=== PATIENT | male | born 1960 | race Caucasian/White ===

== ENCOUNTER 2016-11-11 13:26 | Emergency (ER) | payer OTHER ==
[2016-11-11] MEDS ORDERED: ZOFRAN IV ONE ×2 (14:01→15:56)
[2016-11-11] MEDS ORDERED: NS 1,000 ML IV ONE (14:01)
--- NOTE | 2016-11-11 14:05 | PROVIDER DOCUMENTATION ---
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 Patient had a patch placed by due to having some CSF fluid leakage and part of membrane was removed. He was d/c home after recovery. This morning he developed N/V, headache, and clear drainage to the back throat. Family has been touching base with office and it was recommended to go to the ER for CT scan to see of patch to membrane is working. Location of Pain/Injury: reports: head Pain Radiation: reports: no radiation Quality of Pain: reports: aching Severity: reports: moderate Onset/Duration: reports: gradual, this morning Timing: reports: still present, constant Context/Activities at Onset: reports: other (post op x 1 day) Modifying Factors: improves with: nothing Associated Symptoms: reports: EENT symptoms, fatigue, headaches, nausea, vomiting, weakness. denies: back/neck pain, chest pain, fever/chills, genitourinary problems, loss of appetite, muscle aches Similar Symptoms Previously?: Yes Recently seen or treated by another doctor?: Yes <Marquise Matta - Last Filed: 11/11/16 16:00> <Benito Benz - Last Filed: 11/11/16 16:47> - General Chief Complaint: Post Op Complaint Stated Complaint: POST OP COMPLAINT Time Seen by Provider: 11/11/16 13:49 Allergies/Adverse Reactions: Patient Allergies Allergy/AdvReac Type Severity Reaction Status Date / Time codeine [Codeine] Allergy Severe HIVES Verified 11/11/16 13:53 naproxen sodium * Allergy Mild RASH Verified 11/11/16 13:53 [From Aleve] oxycodone Allergy RASH Verified 11/11/16 13:53 Home Medications: Home Medication List Medication Instructions Recorded Confirmed Last Taken Type Losartan [Cozaar] 100 mg PO DAILY 05/23/12 11/11/16 04/07/16 04:30 History Metformin HCl [Glucophage Xr] 500 mg PO BID 05/23/12 11/11/16 04/06/16 17:00 History PRAVAstatin [Pravachol] 20 mg PO DAILY 05/23/12 11/11/16 04/06/16 21:00 History Aclidinium [place] [Tudorza 400 mcg IH DAILY 10/17/13 11/11/16 04/07/16 04:00 History Pressair] Clonazepam [Klonopin] 0.5 - 1 mg PO HS 10/17/13 11/11/16 04/06/16 21:00 History Aspirin 81 mg PO DAILY 03/08/15 11/11/16 03/24/16 17:00 History Metoprolol Succinate E.r. [Toprol 25 mg PO DAILY 03/08/15 11/11/16 04/07/16 04: 30 History Xl] Cholecalciferol (Vitamin D3) 50,000 unit PO DIRECTED 03/31/16 11/11/16 07:00 History [Vitamin D3] Hydrocodone/Acetaminophen [Center 1 each PO 4XDAY 03/31/16 11/11/16 04/07/16 03: 00 History 10-325 Tablet] Colesevelam HCl [Welchol] 625 mg PO BID 11/11/16 11/11/16 Unknown History Fluticasone 50 Mcg Nasal [place] 1 spray BEVERLY BID 11/11/16 11/11/16 Unknown History [Flonase] Umeclidinium/Vilanterol [Anoro 1 puff INH DAILY 11/11/16 11/11/16 Unknown History Ellipta 62.5-25 Mcg INH] Review of Systems - Adult - REVIEW OF SYSTEMS - ADULT Constitutional: denies: chills, fever Eyes: denies: double vision Ears, Nose, Mouth & Throat: reports: sinus problem. denies: ear discharge, ear pain, throat pain, throat swelling Cardiovascular: denies: chest pain, palpitations, syncope Respiratory: denies: cough, shortness of breath, wheezing Gastrointestinal: reports: nausea, vomiting. denies: abdominal pain, diarrhea Genitourinary: denies: dysuria, discharge, hematuria, urgency Musculoskeletal: reports: no symptoms reported Integumentary: reports: no symptoms reported Neurological: reports: headache/migraines. denies: dizziness/vertigo, seizure, syncope Psychiatric: reports: no symptoms reported Endocrine: reports: no symptoms reported Hematologic/Lymphatic: reports: no symptoms reported Allergic/Immunologic: reports: no symptoms reported All Other Systems: Reviewed and Negative <Marquise Matta - Last Filed: 11/11/16 16:00> Past History - Adult - PAST MEDICAL HISTORY-ADULT Review of Records: reports: Nursing Assessment Review, Medications Reviewed Cardiovascular: reports: HTN Respiratory: reports: COPD, sleep apnea Genitourinary: reports: kidney stones Musculoskeletal: reports: intervertebral disc disease, 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) Endocrine/Immune: reports: Diabetes - PRIOR SURGERIES/PROCEDURES Surgical/Procedure History: reports: recent surgery (deviated septum and two calcified tumors removed), appendectomy, orthopedic (extremity) (right hand), back/neck - SOCIAL HISTORY Smoking: quit greater than 1 year, cigarettes Living Situation: family <Marquise Matta - Last Filed: 11/11/16 16:00> Physical Exam-General - PHYSICAL EXAM-ADULT Initial Vital Signs Reviewed: Yes - CONSTITUTIONAL General Appearance: alert, mild distress, moderate distress, lethargic - EYES Eyes: PERRL/EOMI, pink conjunctivae - HEAD, EARS, NOSE, MOUTH & THROAT HENMT: normocephalic/atraumatic, moist mucous membranes, pharynx normal, other ( dried blood in nostrils,tenderness to left nare) - NECK Neck: non-tender, full range of motion, normal inspection - RESPIRATORY Respiratory: lungs clear, normal breath sounds, no respiratory distress, no accessory muscle use - CARDIOVASCULAR Cardiovascular: regular rate, rhythm, no gallop, no murmur - GASTROINTESTINAL (ABDOMEN) Abdominal Exam: normal bowel sounds, non tender, soft - MUSCULOSKELETAL Extremity: normal range of motion, normal inspection - SKIN Integumentary: normal color, warm/dry - NEUROLOGIC Neurologic: grossly normal, no motor/sensory deficits - PSYCHIATRIC Psych/Mental Status: oriented x 3. negative: anxious, tearful <Marquise Matta - Last Filed: 11/11/16 16:00> Progress - PLAN OF CARE/RESULTS Progress/Plan/Lab Results: plan of care-labs, ct head, fluids Vital Signs Temp Pulse Resp BP Pulse Ox 11/11/16 14:01 81 24 174/103 97 11/11/16 13:29 99.6 F 74 16 190/92 90 L codeine [Codeine] Allergy (Severe, Verified 11/11/16 13:53) HIVES naproxen sodium * [From Aleve] Allergy (Mild, Verified 11/11/16 13:53) RASH oxycodone Allergy (Verified 11/11/16 13:53) RASH Losartan [Cozaar] 100 mg PO DAILY 05/23/12 Metformin HCl [Glucophage Xr] 500 mg PO BID 05/23/12 PRAVAstatin [Pravachol] 20 mg PO DAILY 05/23/12 Aclidinium [place] [Tudorza Pressair] 400 mcg IH DAILY 10/17/13 Clonazepam [Klonopin] 0.5 - 1 mg PO HS 10/17/13 Aspirin 81 mg PO DAILY 03/08/15 Metoprolol Succinate E.r. [Toprol Xl] 25 mg PO DAILY 03/08/15 Cholecalciferol (Vitamin D3) [Vitamin D3] 50,000 unit PO DIRECTED 03/31/16 Hydrocodone/Acetaminophen [Center 10-325 Tablet] 1 each PO 4XDAY 03/31/16 Colesevelam HCl [Welchol] 625 mg PO BID 11/11/16 Fluticasone 50 Mcg Nasal [place] [Flonase] 1 spray BEVER[place] BID 11/11/16 Umeclidinium/Vilanterol [Anoro Ellipta 62.5-25 Mcg INH] 1 puff INH DAILY Laboratory 11/11/16 11/11/16 11/11/16 13:40 13:40 13:40 WBC RBC Hgb Hct MCV MCH MCHC RDW Std Deviation Plt Count MPV Immature Gran % (Auto) Neut % (Auto) Lymph % (Auto) [place] % (Auto) Eos % (Auto) Baso % (Auto) Immature Gran # (Auto) Neut # (Auto) Lymph # (Auto) [place] # (Auto) Eos # (Auto) Baso # (Auto) PT 10.7 INR 1.01 PTT (Actin FS) 28.7 Sodium 136 Potassium 4.4 Chloride 94 L Carbon Dioxide 29 Anion Gap 13 BUN 9 Creatinine 1.0 Estimated GFR/1.73 m2 > 60 BUN/Creatinine Ratio 9 Glucose 152 H Calculated Osmolality 274 Calcium 9.8 Total Bilirubin 0.63 AST 30 ALT 17 Alkaline Phosphatase 89 Total Protein 7.6 Albumin 4.4 Globulin 3.2 Albumin/Globulin Ratio 1.4 Plasma Lactate 1.6 11/11/16 13:40 WBC 15.56 H RBC 5.54 Hgb 15.8 Hct 48.4 MCV 87.4 MCH 28.5 MCHC 32.6 L RDW Std Deviation 13.8 Plt Count 277 MPV 11.5 H Immature Gran % (Auto) 0.3 Neut % (Auto) 85.3 H Lymph % (Auto) 7.8 L [place] % (Auto) 6.4 Eos % (Auto) 0.1 Baso % (Auto) 0.1 Immature Gran # (Auto) 0.04 Neut # (Auto) 13.28 H Lymph # (Auto) 1.21 [place] # (Auto) 0.99 H Eos # (Auto) 0.02 Baso # (Auto) 0.02 PT INR PTT (Actin FS) Sodium Potassium Chloride Carbon Dioxide Anion Gap BUN Creatinine Estimated GFR/1.73 m2 BUN/Creatinine Ratio Glucose Calculated Osmolality Calcium Total Bilirubin AST ALT Alkaline Phosphatase Total Protein Albumin Globulin Albumin/Globulin Ratio Plasma Lactate Orders Category Date Time Status Elevate Head of Bed DIRECTED Care 11/11/16 14:02 Active Saline Loc NOW Care 11/11/16 14:01 Active HEAD W/O CONTRAST [CT] Stat Exams 11/11/16 14:17 Taken BLOOD CULTURE [BLDCUL] Stat Lab 11/11/16 14:41 Received CBC WITH ELECTRONIC DIFF [HEME] Stat Lab 11/11/16 13:40 Completed COMPREHENSIVE METABOLIC PANEL [CHEM] Stat Lab 11/11/16 13:40 Completed LACTATE, PLASMA [CHEM] Stat Lab 11/11/16 13:40 Completed PROTIME WITH INR [COAG] Stat Lab 11/11/16 13:40 Completed PTT [COAG] Stat Lab 11/11/16 13:40 Completed 0.9% Sodium Chloride Inj [Ns] 1,000 ml Med 11/11/16 14:01 Discontinued IV 999 mls/hr Ondansetron [Zofran] Med 11/11/16 14:01 Discontinued 4 mg IV NOW ONE 1445- spoke with regarding patient, he recommends patient being sent back to . He referred him to him due to nature of surgery. 1531- returned call to , he would like to call Er at [facility] and have patient transferred to them and he will evaluated patient then. 1600- spoke with ( ER physician at [facility]), is the accepting. Family updated and patient. Orders Category Date Time Status Elevate Head of Bed DIRECTED Care 11/11/16 14:02 Active Saline Loc NOW Care 11/11/16 14:01 Active HEAD W/O CONTRAST [CT] Stat Exams 11/11/16 14:17 Draft BLOOD CULTURE [BLDCUL] Stat Lab 11/11/16 14:41 Results CBC WITH ELECTRONIC DIFF [HEME] Stat Lab 11/11/16 13:40 Completed COMPREHENSIVE METABOLIC PANEL [CHEM] Stat Lab 11/11/16 13:40 Completed LACTATE, PLASMA [CHEM] Stat Lab 11/11/16 13:40 Completed PROTIME WITH INR [COAG] Stat Lab 11/11/16 13:40 Completed PTT [COAG] Stat Lab 11/11/16 13:40 Completed 0.9% Sodium Chloride Inj [Ns] 1,000 ml Med 11/11/16 14:01 Discontinued IV 999 mls/hr CefTRIAXONE 1 GM/NS [Rocephin 1 gm/Ns] 50 ml Med 11/11/16 15:06 Discontinued IV NOW Morphine Med 11/11/16 15:56 Discontinued 4 mg IV NOW ONE Ondansetron [Zofran] Med 11/11/16 14:01 Discontinued 4 mg IV NOW ONE Ondansetron [Zofran] Med 11/11/16 15:56 Discontinued 4 mg IV NOW ONE - CT/MRI 1 CT Study: Head Impression: Abnormal CT Results: extensive pneumocephalus,possibly from defect - CONSULTS/PCP/HOSPITALIST Notification #1 *Consult/PCP/Hospitalist*: (ENT at [facility]) Time Discussed: 14:15 Reason/Comments: order ct of head w/o contrast Consult Disposition: other #2 Consult: ( ENT at [facility]) Time Discussed: 15:04 Reason/Comments: will call back after reviewing CT scan #3 Consult: Time Discussed: 15:26 Reason/Comments: post op comp Consult Disposition: other (Transfer to [facility] Er, He will return call to set up arrangements) <Marquise Matta - Last Filed: 11/11/16 16:00> - PLAN OF CARE/RESULTS Progress/Plan/Lab Results: 1645 EMS is here to transport the patient. They are concerned because the patient was seeming confused. He had stated that he needed to go to the restroom but then stood and sat back down. He was earlier given Morphine and Zofran for pain and nausea. I am reluctant to give anything else that may suppress his respiratory drive. Will give IM Geodon in an attempt to make him more calm for the transport. <Benito Benz - Last Filed: 11/11/16 16:47> Departure - Departure Time of Disposition Order: 16:01 Certified Medical Emergency: Emergent - Critical Care Note Total Time (mins): 35 Critical Care Statement: This patient required my direct personal management to treat or rule out processes, the absence of which, could potentiallly result in sudden, clinically significant life or limb threatening deterioration. <Marquise Matta - Last Filed: 11/11/16 16:00> <Benito Benz - Last Filed: 11/11/16 16:47> - Departure DIAGNOSIS: Pneumocephalus Post-operative complication Qualifiers: Surgical complication system/body Area: [id number] Encounter type: initial encounter Disposition: [facility] 02 Condition: Stable Referrals: Fly Tse DO [Primary Care Provider] - Attestation - Scribe Verification/Attestation Scribe:: Marquise Matta Acting as Scribe for:: Benito Benz Scribe documention review:: This chart was documented by a scribe and accurately reflects the service the provider performed and the decisions made by the provider. <Marquise Matta - Last Filed: 11/11/16 16:00> Physician Attestation - Physician Attestation I, the provider, attest to the following statement:: Benito Benz Physician documentation Attestation:: This documentation recorded by the scribe accurately reflects the service I personally performed and the decisions made by me. <Marquise Matta - Last Filed: 11/11/16 16:00>
[2016-11-11 14:37] LABS: BASO% 0.1 % (0.0-0.8); EOS# 0.02 X1000 (0.0-0.7); EOS% 0.1 % (0.0-10.0); HEMATOCRIT 48.4 % (42.0-52.0); HEMOGLOBIN 15.8 g/dL (14.0-18.0); IMM GRAN# 0.04 X1000 (0.0-0.04); IMM GRAN% 0.3 % (0.0-0.5); LYMPH# 1.21 X1000 (1.2-3.4); LYMPH% 7.8 % (20.5-51.1); MANUAL DIFF NEEDED? NO; MCH 28.5 PG (27-31); MCHC 32.6 g/dL (33-37); MCV 87.4 FL (81-99); MONO# 0.99 X1000 (0.11-0.59); MONO% 6.4 % (1.7-9.3); MPV 11.5 FL (7.4-10.4); NEUT% 85.3 % (42.2-75.2); PLT 277 X1000 (130-400); RBC 5.54 XMIL (4.7-6.1)
[2016-11-11 14:46] LABS: INR 1.01; PROTIME 10.7 Seconds (9.2-11.7); PTT 28.7 Seconds (22.0-36.0)
[2016-11-11 14:56] LABS: AGAP 13; ALBUMIN 4.4 g/dL (3.5-5.0); ALKALINE PHOSPHATASE 89 U/L (32-122); BUN 9 mg/dL (8-22); CALCIUM 9.8 mg/dL (8.8-10.2); CHLORIDE 94 mmol/L (98-107); COSMO 274; GOT 30 U/L (10-34); GPT 17 U/L (10-44); POTASSIUM 4.4 mmol/L (3.5-5.1); SODIUM 136 mmol/L (136-145); TCO2 29 mmol/L (25-35); TOTAL BILIRUBIN 0.63 mg/dL (0.20-1.00); TOTAL PROTEIN 7.6 g/dL (6.3-8.3)
[2016-11-11] MEDS ORDERED: ROCEPHIN 1 GM/NS 50 ML IV ONE (15:06)
--- NOTE | 2016-11-11 15:13 | Diag Imaging Result Document ---
PROCEDURE NAME: HEAD W/O CONTRAST - 11/11/2016 CT OF THE HEAD WITHOUT CONTRAST: FINDINGS: There is extensive pneumocephalus particularly in the left frontal region. There is fluid in the left maxillary sinus as well as some mucosal thickening as well as the ethmoid region and the left sphenoid sinus. There is some mucosal thickening in the left frontal sinus as well. The calvarium appears to be intact. None of these findings were present at the time of the previous study of 11/23/2010. Previously, there was a very dense calcification in the left ethmoid region which may be an osteoma. This has been either partially resected or, for whatever reason, is no longer present. IMPRESSION: Extensive pneumocephalus. There is likely a defect in the ethmoid plate as a source of the gas. Fluid in the sinuses as described.
[2016-11-11] MEDS ORDERED: MORPHINE IV ONE (15:56)
[2016-11-11] MEDS ORDERED: GEODON IM ONE (16:42)
[2016-11-11] MEDS ORDERED: STERILE WATER INJ. ONE (16:42)
[2016-11-11] MEDS ORDERED: STERILE WATER INJ. INJ ONE (16:42)
[2016-11-11] MEDS ORDERED: GEODON ONE (16:42)
[2016-11-11] MEDS ORDERED: LABETALOL ONE (17:07)
[2016-11-11] MEDS ORDERED: LABETALOL IV ONE (17:07)
[2016-11-11 17:45] VITALS: BP 184/105
== END 2016-11-11 17:32 | disposition short-term general hospital (02) ==
LOC: ED 13:26
DX: T81.89XA Other complications of procedures, not elsewhere classified, initial encounter (principal); G93.89 Other specified disorders of brain; R11.2 Nausea with vomiting, unspecified; R51 Headache; R53.83 Other fatigue; R53.1 Weakness; J34.89 Other specified disorders of nose and nasal sinuses; I10 Essential (primary) hypertension; Z79.899 Other long term (current) drug therapy; J44.9 Chronic obstructive pulmonary disease, unspecified; E11.9 Type 2 diabetes mellitus without complications; Z79.82 Long term (current) use of aspirin; Z79.51 Long term (current) use of inhaled steroids; Z98.890 Other specified postprocedural states; Z87.442 Personal history of urinary calculi; Z87.891 Personal history of nicotine dependence
CPT/HCPCS: 70450; 80053; 83605; 85025; 85610; 85730; 87040; 87077; J0696; J2270; J2405; J3486; J7030